=== PATIENT | male | born 1945 ===

== ENCOUNTER → 2020-01-12 | Outpatient (CLI) | payer OTHER ==
[2020-01-12 08:04] LABS: TRIGLYCERIDES 51 MG/DL (<150); VLDL CHOLESTEROL 10 MG/DL (5-40)
[2020-01-12 08:09] LABS: CHOLESTEROL 125 MG/DL (< 200)
[2020-01-12 08:10] LABS: HDL CHOLESTEROL 51 MG/DL (40-60)
== END ==
LOC: LABNPT 07:36
PROVIDERS: ATTEND Internal Medicine
DX: Z01.89 Encounter for other specified special examinations (principal)
CPT/HCPCS: 80061